=== PATIENT | female | born 1935 | race Hispanic/Latino ===

== ENCOUNTER → 2022-04-12 | Outpatient (CLI) | payer OTHER | END | disposition home or self-care (01) | LOC: SHCH 11:49 | PROVIDERS: ATTEND Student in an Organized Health Care Education/Training Program | DX: E11.9 Type 2 diabetes mellitus without complications (principal); I42.1 Obstructive hypertrophic cardiomyopathy; E78.5 Hyperlipidemia, unspecified; I42.2 Other hypertrophic cardiomyopathy | CPT/HCPCS: 93306 ==